=== PATIENT | female | born 1940 | race Caucasian/White ===

== ENCOUNTER 2023-10-16 13:31 | Inpatient (IN) | payer MEDICARE, OTHER ==
[~2023-10-16] VITALS: Wt 49.9 kg
[2023-10-16 13:47] VITALS: BP 174/106
[2023-10-16 14:14] LABS: BASO # 0.1 10*3/uL (0.0-0.1); BASO % 0.9 % (0.0-1.0); EOS % 0.6 % (1.0-4.0); HEMATOCRIT 36.7 % (37.0-47.0); LYMPH # 1.9 10*3/uL (1.3-4.4); LYMPH % 28.6 % (27.0-41.0); MEAN CELL VOLUME 97.6 fl (81.0-99.0); MEAN CORPUSCULAR HGB 31.4 pg (27.0-31.0); MEAN CORPUSCULAR HGB CONC 32.2 g/dl (33.0-37.0); MEAN PLATELET VOLUME 8.5 fl (9.6-12.3); MONO # 0.8 10*3/uL (0.1-1.0); MONO % 11.1 % (3.0-9.0); NEUT % 58.5 % (47.0-73.0); PLATELET COUNT AUTOMATED 245 10*3/uL (130-400); RED BLOOD COUNT 3.76 10*6/uL (4.10-5.10); RED CELL DISTRI WIDTH 13.3 % (0-14.5); WHITE BLOOD COUNT 6.8 10*3/uL (4.8-10.8)
[2023-10-16 14:21] LABS: BILIRUBIN Negative (Negative); BLOOD Negative (Negative); CLARITY Clear (Clear); COLOR Yellow (Yellow); GLUCOSE Negative (Negative); KETONE Negative (Negative); LEUKO ESTERASE Trace (Negative); NITRITE Negative (Negative); PH 6.5 (4.5-8.0); UROBILINOGEN 0.2 E.U./dl (0.0-1.0)
[2023-10-16 14:36] LABS: BACTERIA 1+
[2023-10-16 14:37] LABS: URINE AMPHETAMINES Negative (1000ng/ml); URINE BARBITURATES Negative (200ng/ml); URINE BENZODIAZEPINES Negative (200ng/ml); URINE CANNABINOIDS (THC) Negative (50ng/ml); URINE COCAINE Negative (300ng/ml); URINE METHADONE Negative (300ng/ml); URINE OPIATES Negative (300ng/ml); URINE PHENCYCLIDINE Negative (25ng/ml)
[2023-10-16 14:39] LABS: BUN 17 mg/dl (9-23); CHLORIDE 101 mmol/L (98-107); POTASSIUM 4.2 mmol/L (3.4-5.1)
[2023-10-16 14:41] LABS: ETHYL ALCOHOL < 3.0 mg/dl (<3)
[2023-10-16] MEDS ORDERED: CYPROHEPTADINE H4 M1 PO (16:53)
[2023-10-16] MEDS ORDERED: IPRATROPIU0.2 MG/1 M NEB (16:56)
[2023-10-16] MEDS ORDERED: CITROMA296 ML PO (16:59)
[2023-10-16] MEDS ORDERED: MILK OF MA400 MG/5 M PO (17:02)
[2023-10-16] MEDS ORDERED: MIRALAX119 GM PO (17:03)
[2023-10-16] MEDS ORDERED: MUCINEX ER600 MG PO (17:05)
[2023-10-16] MEDS ORDERED: PROAIR RESPICL90 MCG INH (17:11)
[2023-10-16] MEDS ORDERED: PROTONIX40 MG PO (17:12)
[2023-10-16] MEDS ORDERED: TRAMADOL HCL50 MG PO ×2 (17:19→17:25)
[2023-10-16] MEDS ORDERED: TYLENOL325 M3 PO (17:31)
[2023-10-16] MEDS ORDERED: PAN-C 500 TABL1 EACH PO (17:36)
[2023-10-16] MEDS ORDERED: VOLTAREN ARTHRI20 GM T (17:38)
[2023-10-16] MEDS ORDERED: ONDANSETRON4 MG SL (17:39)
[2023-10-16] MEDS ORDERED: MELADOX3 MG PO (18:13)
[2023-10-16] MEDS ORDERED: DEPAKOTE ER250 MG PO (18:14)
[2023-10-16] MEDS ORDERED: TRAZODONE100 MG PO (18:14)
[2023-10-16] MEDS ORDERED: RIVASTIGMINE TAR3 M1 PO (18:17)
[2023-10-16] MEDS ORDERED: VISTARIL25 MG PO (18:19)
[2023-10-16] MEDS ORDERED: hydrOXYzine pamoate 25 MG CAP PO PRN (18:20)
[2023-10-16] MEDS ORDERED: LORazepam 1 MG TAB PO PRN (18:25)
[2023-10-16] MEDS ORDERED: Ziprasidone Mesylate 20 MG VIAL IM PRN (18:25)
[2023-10-16] MEDS ORDERED: MG-AL HYDROXIDE/SIMETICONE 30 ML UDC PO PRN (18:30)
[2023-10-16] MEDS ORDERED: ACETAMINOPHEN 325 MG TAB PO PRN (18:30)
[2023-10-16] MEDS ORDERED: Magnesium Hydroxide 30 ML UDC PO PRN (18:30)
[2023-10-16] MEDS ORDERED: Menthol/Zinc Oxide 4 GM THIN T PRN (18:45)
[2023-10-16] MEDS ORDERED: Water, Sterile 10 ML VIAL IM PRN (18:54)
[2023-10-16] MEDS ORDERED: cloNIDine Hydrochloride 0.1 MG TAB PO ONE (19:15)
[2023-10-16] MEDS ORDERED: Polyethylene Glycol 3350 17 GM PACKET PO PRN (19:45)
[2023-10-16] MEDS ORDERED: IPRATROPIUM BROMIDE 0.5 MG/2.5 ML AMP NEB PRN (19:45)
[2023-10-16] MEDS ORDERED: Melatonin 3 MG TABLET PO PRN (19:50)
[2023-10-16] MEDS ORDERED: DICLOFENAC SODIUM 100 GM TUBE T PRN (19:50)
[2023-10-16] MEDS ORDERED: Albuterol Sulfate 2.5 MG/3 ML VIAL NEB PRN (20:15)
[2023-10-16 20:17] VITALS: BP 190/100
[2023-10-16] MEDS ORDERED: Memantine Hydrochloride 10 MG TAB PO SCH (21:00)
[2023-10-16] MEDS ORDERED: Cyproheptadine Hydrochloride 4 MG TAB PO SCH (21:00)
[2023-10-16] MEDS ORDERED: Mirtazapine 15 MG TAB PO SCH (21:00)
[2023-10-16] MEDS ORDERED: DIVALPROEX (DR) 250 MG TAB PO SCH (21:00)
[2023-10-16] MEDS ORDERED: Rivastigmine Tartrate 1.5 MG CAP PO SCH (21:00)
[2023-10-17] MEDS ORDERED: Pantoprazole Sodium 40 MG TAB PO SCH (06:00)
[2023-10-17 07:01] LABS: BASO # 0.1 10*3/uL (0.0-0.1); BASO % 1.3 % (0.0-1.0); EOS % 1.1 % (1.0-4.0); HEMATOCRIT 36.8 % (37.0-47.0); LYMPH # 1.5 10*3/uL (1.3-4.4); LYMPH % 39.3 % (27.0-41.0); MEAN CELL VOLUME 97.1 fl (81.0-99.0); MEAN CORPUSCULAR HGB 31.9 pg (27.0-31.0); MEAN CORPUSCULAR HGB CONC 32.9 g/dl (33.0-37.0); MEAN PLATELET VOLUME 8.8 fl (9.6-12.3); MONO # 0.5 10*3/uL (0.1-1.0); MONO % 13.3 % (3.0-9.0); NEUT # 1.7 10*3/uL (2.3-7.9); NEUT % 44.7 % (47.0-73.0); PLATELET COUNT AUTOMATED 251 10*3/uL (130-400); RED BLOOD COUNT 3.79 10*6/uL (4.10-5.10); RED CELL DISTRI WIDTH 13.5 % (0-14.5); WHITE BLOOD COUNT 3.8 10*3/uL (4.8-10.8)
[2023-10-17 07:25] VITALS: BP 102/52
[2023-10-17 07:34] LABS: ALKALINE PHOSPHATASE 58 U/L (46-116); BUN 16 mg/dl (9-23); CHLORIDE 104 mmol/L (98-107); CHOLESTEROL 217 mg/dL (<200); LDL CHOLESTEROL 117 mg/dL (9-159); POTASSIUM 4.3 mmol/L (3.4-5.1); TOTAL PROTEIN 6.3 gm/dL (6.0-8.0); TRIGLYCERIDES 61 mg/dl (<150); VALPROIC ACID (DEPAKENE) 27.3 ug/ml (50-100)
[2023-10-17 07:36] LABS: SGPT/ALT < 7 U/L (5-49)
[2023-10-17 07:42] LABS: VITAMIN D, 25-HYDROXY 74.1 ng/mL (30-100)
[2023-10-17] MEDS ORDERED: ZINC SULFATE 220 MG TAB PO SCH (09:25)
[2023-10-17] MEDS ORDERED: cloNIDine Hydrochloride 0.2 MG TAB PO ONE (19:50)
[2023-10-17 20:00] VITALS: BP 220/102
[2023-10-18 08:00] VITALS: BP 126/58
[2023-10-18] MEDS ORDERED: Rivastigmine Tartrate 3 MG CAP PO SCH (09:00)
[2023-10-18] MEDS ORDERED: LORazepam 0.5 MG TAB PO SCH (19:00)
[2023-10-18 20:00] VITALS: BP 126/45
[2023-10-19 08:00] VITALS: BP 154/74
[2023-10-19 20:00] VITALS: BP 190/98
[2023-10-20 07:30] VITALS: BP 146/70
[2023-10-20] MEDS ORDERED: LORazepam 0.5 MG TAB PO SCH (09:00)
[2023-10-20 20:00] VITALS: BP 160/65
[2023-10-21 07:37] VITALS: BP 133/64
[2023-10-21 20:00] VITALS: BP 153/55
[2023-10-22 08:01] VITALS: BP 147/64
[2023-10-22] MEDS ORDERED: DIVALPROEX SOD250 MG PO (09:00)
[2023-10-22] MEDS ORDERED: RIVASTIGMINE TAR3 M1 PO (09:00)
[2023-10-22] MEDS ORDERED: MIRTAZAPINE15 M2 PO (09:00)
[2023-10-22] MEDS ORDERED: ZINC SULFATE50 MG PO (09:00)
[2023-10-22] MEDS ORDERED: LORAZEPAM0.5 M1 PO (09:00)
[2023-10-22] MEDS ORDERED: MEMANTINE HCL10 MG PO (09:00)
[2023-10-22] MEDS ORDERED: CYPROHEPTADINE H4 M1 PO (09:00)
[2023-10-22] MEDS ORDERED: Pneumococcal Vaccine Polyval 0.5 ML SYR IM SCH (10:35)
== END 2023-10-22 11:01 | DRG 881 ==
LOC: ED 13:31 → 3N 15:42
PROVIDERS: Student in an Organized Health Care Education/Training Program; ADMIT Psychiatry & Neurology Psychiatry; ATTEND Psychiatry & Neurology Psychiatry
PROC: GZHZZZZ Group Psychotherapy (ICD-10-PCS; principal; 2023-10-19)
PROC: GZ51ZZZ Individual Psychotherapy, Behavioral (ICD-10-PCS; 2023-10-19)
DX: F43.21 Adjustment disorder with depressed mood (principal); E87.1 Hypo-osmolality and hyponatremia; F03.92 Unspecified dementia, unspecified severity, with psychotic disturbance; F31.9 Bipolar disorder, unspecified; I16.0 Hypertensive urgency; D50.9 Iron deficiency anemia, unspecified; K59.00 Constipation, unspecified; K21.9 Gastro-esophageal reflux disease without esophagitis; R82.71 Bacteriuria; J44.9 Chronic obstructive pulmonary disease, unspecified; G47.00 Insomnia, unspecified; Z87.891 Personal history of nicotine dependence; Z79.1 Long term (current) use of non-steroidal anti-inflammatories (NSAID); Z79.899 Other long term (current) drug therapy